=== PATIENT | female | born 1955 ===

== ENCOUNTER 2018-01-07 06:09 | Day surgery (SDC) | payer MEDICAID ==
[2016-02-23 19:30] VITALS: BMI 22.3
[2018-01-07 07:51] VITALS: O2SAT 100
[2018-01-07] MEDS ORDERED: Lidocaine 2% Inj (20ml) ONE (07:58)
[2018-01-07] MEDS ORDERED: Phenylephrine 10 mg/ml Inj ONE (07:58)
[2018-01-07] MEDS ORDERED: Propofol 10 mg/ml Inj (20 ML) ONE (07:58)
[2018-01-07] MEDS ORDERED: ePHEDrine 50 mg/ml Inj ONE (08:25)
[2018-01-07] MEDS ORDERED: Esmolol 100 mg/10ml Inj IV ONE (08:25)
[2018-01-07] MEDS ORDERED: Sodium Chloride 0.9% 1,000 ML IV SCH (08:45)
[2018-01-07 09:44] VITALS: BP 112/62; PULSE 78; RESP 14; TEMP 97.5
== END 2018-01-07 11:15 | disposition home or self-care (01) ==
LOC: ENDO 06:09
PROVIDERS: ATTEND Internal Medicine
DX: K29.50 Unspecified chronic gastritis without bleeding (principal); B96.81 Helicobacter pylori [H. pylori] as the cause of diseases classified elsewhere; Z12.11 Encounter for screening for malignant neoplasm of colon; K63.5 Polyp of colon; K44.9 Diaphragmatic hernia without obstruction or gangrene; K64.8 Other hemorrhoids; R10.13 Epigastric pain
CPT/HCPCS: 43239; 45380; 88305; 88342; J2370; J2704; J7040 ×2